=== PATIENT | female | born 1965 | race Caucasian/White ===

== ENCOUNTER 2018-09-23 07:50 | Emergency (ER) | payer MEDICAID ==
[~2018-09-23] VITALS: Ht 152.4 cm; Wt 85.7 kg
[2018-09-23 07:55] VITALS: Ht 152.4 cm; Wt 85.7 kg
[2018-09-23 08:52] VITALS: BP 160/87
== END 2018-09-23 08:52 | disposition home or self-care (01) ==
LOC: ED 07:50
DX: S86.912A Strain of unspecified muscle(s) and tendon(s) at lower leg level, left leg, initial encounter (principal); I10 Essential (primary) hypertension; X58.XXXA Exposure to other specified factors, initial encounter; Y93.89 Activity, other specified; Y92.89 Other specified places as the place of occurrence of the external cause; Y99.8 Other external cause status